=== PATIENT | male | born 1960 | race Caucasian/White ===

== ENCOUNTER 2017-05-19 07:02 | Outpatient (CLI) | payer BC ==
[~2017-05-19] VITALS: Ht 175.3 cm; Wt 99.1 kg
--- NOTE | ~2017-05-19 | HEMODYNAMI ---
PATIENT:ANAHI KAPLAN MEDICAL RECORD: [id number] : 64 LOCATION:[facility] ADMISSION DATE: 05/19/17 Generatedon:05/19/20179:50 Patient name: ANAHI KAPLAN Patient #: [id number] SSN: : Date of study: 05/19/2017 Page: Of Hemodynamic Procedure Report Patient Data Patient Demographics Procedure consent was obtained First Name: ANAHI Gender: Male Last Name: ROSAURA : 1960 Middle Initial: JUAN MANUEL Age: 56 year(s) Patient #: [id number] Race: Unknown Additional ID: [id number] Contact details Address: [address] [place] [address] State: [place] City: [facility] Zip code: [address] Past Medical History Allergies: No known allergies Admission Admission Data Admission Date: 05/19/2017 Admission Time: 7:02 Height (in.): 5.9 BSA: 0.36 (m2) Height (cm.): 14.99 BMI: 4483.81 (kg/m2) Weight (lbs.): 222 Weight (kg.): 100.7 Lab Results Lab Result Date: 05/19/2017 Lab Result Time: 0:00 Biochemistry Name Units Result Min Max BUN mg/dl 15 --(--*-)-- 7 18 Creatinine mg/dl 0.7 --(*---)-- 0.6 1.3 CBC Name Units Result Min Max Hemoglobin g/dl 13.3 -*(----)-- 13.5 17.5 Procedure Procedure Types Cath Procedure Diagnostic Procedure [facility] w/Coronaries PCI Procedure Coronary Stent Coronary Stent Initial Miscellaneous Procedures Moderate Sedation up to 30 minutes Procedure Description Procedure Date Procedure Date: 05/19/2017 Procedure Start Time: 9:25 Procedure End Time: 9:50 Procedure Staff Name Function Christian Rodas MD Performing Physician Ulises Lake RT Scrub Elijah Gonzalez RN Nurse Parth Arenas RN Business Process Architect Bhakti Tello RT Monitor Procedure Data Cath Procedure Fluoroscopy Diagnostic fluoroscopy Total fluoroscopy Time: 3.9 time: 3.9 min min Diagnostic fluoroscopy Total fluoroscopy dose: 765 dose: 765 mGy mGy Contrast Material Contrast Material Type Amount (ml) Isovue 300 126 Entry Location Entry Primary Successful Side Size Upsize Upsize Entry Closure Anders ccessful Closure Location (Fr) 1 (Fr) 2 (Fr) Remarks Device Remarks Radial Right 6 Fr Mechanical artery Short Compression Estimated blood loss: 10 ml Diagnostic catheters Device Type Used For End Catheter Placement DIAGNOSTIC Jame 110cm Procedure 5Fr catheter ([id number]) Procedure Complications No complications Procedure Medications Medication Administration Route Dosage 0.9% NaCl I.V. 100 ml/hr Oxygen NC 2 l/min Heparin Flush Bag added to field 2 bags (1000units/500ml NS) Lidocaine 2% added to field 20 Radial Cocktail added to field 1 syringe (Verapomil 2mg/Nitro 400mcg/Heparin 1500units) Versed I.V. 2 mg Fentanyl I.V. 100 mcg Versed I.V. 1 mg Radial Cocktail I.A. 1 syringe (Verapomil 2mg/Nitro 400mcg/Heparin 1500units) Heparin Bolus I.V. 9900 units Nitroglycerin IC/IA I.C. 100 mcg Brilinta P.O. 180 mg Hemodynamics Rest BSA: 0.36 (m2) HGB: 13.3 (g/dl) O2 Consumption: Estimated: 42.74 (ml/min) O2 Con sumption indexed: Estimated:118.72 (ml/min/m) Heart Rate: 70 (bpm) Pressure Samples Time Site Value (mmHg) Purpose Heart Use Rate(bpm) 9:28 LV 132/8,11 Snapshot 101 9:29 AO 99/64(82) Pullback 88 9:29 LV 114/-7,7 Pullback 88 Gradients Valve Time Site 1 Site 2 Mean SEP/DFP Peak To Heart Use (mmHg) (sec/min) Peak Rate (mmHg) (bpm) Aortic 9:29 LV AO 12 7 15 88 114/-7,7 99/64(82) Calculations Valve P-P Mean Valve Index Valve Source Name Gradient Area Flow (cm2) Aortic 15 12 15 12 Snapshots Pre Cath Intra NCS Post Cath Vital Signs Time Heart Resp SPO2 etCO2 NIBP (mmHg) Rhythm Pain Sedation Rate (ipm) (%) (mmHg) Status Level (bpm) 9:01:52 78 14 98 0 136/92(116) NSR 0 (11) 10(A) , No pain 9:14:56 82 24 99 33.7 139/92(107) NSR 0 (11) 10(A) , No pain 9:19:33 69 17 96 34.4 135/84(107) NSR 0 (11) 10(A) , No pain 9:24:11 69 13 95 41.1 119/75(93) NSR 0 (11) 10(A) , No pain 9:28:47 158 15 93 32.2 111/66(96) NSR 0 (11) 9(A) , No pain 9:33:22 82 14 92 35.2 122/60(96) NSR 0 (11) 9(A) , No pain 9:37:58 85 14 94 34.4 111/65(97) NSR 0 (11) 10(A) , No pain 9:42:35 93 15 93 35.9 110/50(81) NSR 0 (11) 10(A) , No pain 9:47:07 84 17 97 38.1 125/70(89) NSR 0 (11) 10(A) , No pain Medications Time Medication Route Dose Verified Delivered Reason Notes Effectiveness by by 9:16:45 0.9% NaCl I.V. 100 Elijah Elijah Per physician ml/hr Carlos Gonzalez RN, RN 9:16:57 Oxygen NC 2 l/min Elijah Elijah Per physician Carlos Gonzalez RN, RN 9:17:10 Heparin Flush added 2 bags Elijah Elijah used for Bag to Lorigan Loralyssa procedure (1000units/500ml field DANIEL SANCHEZ NS) 9:17:23 Lidocaine 2% added 20ml Elijah Elijah for local to vial Lorigan Lorigan anesthetic field DANIEL SANCHEZ 9:17:33 Radial Cocktail added 1 Elijah Elijah used for (Verapomil to syringe Lorigan Lorigan procedure 2mg/Nitro field DANIEL SANCHEZ 400mcg/Heparin 1500units) 9:18:56 Versed I.V. 2 mg Elijah Elijah for sedation Carlos Gonzalez RN, RN 9:19:05 Fentanyl I.V. 100 mcg Elijah Elijah for sedation Lorigan Lorigan RN RN 9:27:00 Versed I.V. 1 mg Elijah Elijah for sedation Carlos Gonzalez RN RN 9:27:13 Radial Cocktail I.A. 1 Elijah Christian for (Verapomil syringe Carlos Rodas MD vasodilation 2mg/Nitro RN 400mcg/Heparin 1500units) 9:35:52 Heparin Bolus I.V. 9,900 Elijah Elijah for units Carlos Gonzalez anticoagulation RN RN 9:41:12 Nitroglycerin I.C. 100 mcg Elijah Christian for IC/IA Carlos Rodas MD vasodilation RN 9:44:07 Brilinta P.O. 180 mg Elijah Christian for Carlos Rodas MD antiplatelet RN therapy Procedure Log Time Note 8:46:32 Elijah Gonzalez RN sent for patient. Start room use. 8:46:32 Time tracking: Regular hours 8:46:37 Plan of Care:Hemodynamics will remain stable., Cardiac rhythm will remain stable., Comfort level will be maintained., Respiratory function will remain adequate., Patient/ family verbilizes understanding of procedure., Procedure tolerated without complication., Recovers from procedure without complications.. 8:53:57 Patient received from Pre/Post Procedure Room to CCL 1 Alert and oriented. Tansferred to table in Supine position. 8:53:59 Warm blankets applied, and kacy hugger turned on for patient comfort. 8:54:00 Correct patient and procedure confirmed by team. 8:54:02 Signed procedure consent form obtained from patient. 8:54:02 ECG and BP/O2 sat monitors applied to patient. 8:54:03 Full Disclosure recording started 9:01:03 Vital chart was started 9:05:24 Baseline sample Acquired. 9:05:28 Rhythm: sinus rhythm 9:05:59 H&P Date Dictated: 04/19/2017 Within 30 days and on chart.. 9:06:01 Pre-procedure instructions explained to patient. 9:06:01 Pre-op teaching completed and patient verbalized understanding. 9:06:03 Family in patients room. 9:06:06 Patient NPO since Midnight. 9:06:16 Patient allergic to No known allergies 9:06:18 Is the patient allergic to Iodine/contrast media? No. 9:06:20 Is patient on blood thinner?No 9:06:22 Patient diabetic? Yes. 9:06:23 If diabetic: On Metformin? Yes 9:06:28 If on Metformin: Last Dose? 05/17/2017 9:06:31 Previous problem with sedation/anesthesia? No ? 9:06:32 Snore? Yes 9:06:33 Sleep apnea? No 9:06:35 Deviated septum? No 9:06:35 Opens mouth fully? Yes 9:06:41 Sticks out tongue? Yes 9:06:44 Airway obstruction? No ? 9:06:45 Dentures? No ? 9:06:50 Pre procedure: right dorsailis pedis pulse 2+ Normal; easily identifiable; not easily obliterated 9:06:52 Modified Tello's test Ulnar < 7 seconds 9:06:53 Patient pain scale 0/10 ?. 9:07:00 IV patent on arrival in Left upper arm with 0.9% NaCl at KVO. 9:07:03 Lab results completed and on chart. 9:07:06 Right Radial & Right Groin area was prepped with chlora-prep and draped in sterile fashion 9:07:08 Alarms reviewed by R. N. 9:07:09 Sharps counted by scrub and verified by R.N. 9:07:12 Use device set Radial Dx or PCI 9:07:13 ACIST Syringe (66582) opened to sterile field. 9:07:13 Medline Cath Pack ([id number]) opened to sterile field. 9:07:14 Bag Decanter (2002S) opened to sterile field. 9:07:14 SHEATH 6FR Slender ([id number]) opened to sterile field. 9:07:15 DIAGNOSTIC WIRE .035 260cm J wire (371239) opened to sterile field. 9:07:16 ACIST Hand Control (22124) opened to sterile field. 9:07:16 ACIST Manifold (48791) opened to sterile field. 9:07:17 Tegaderm 4 x 4 (1626W) opened to sterile field. 9:07:17 MBrace Wrist Support ([id number]) opened to sterile field. 9:07:18 NEEDLE Cook 21G 4cm Radial ([id number]) opened to sterile field. 9:07:58 Vital chart was stopped 9:08:19 IV Left upper arm D/C'd due to infiltration. 9:12:47 Patient Height : 5.9 inches 9:12:51 Patient Weight : 222 lbs 9:14:07 IV started by Parth Arenas RN inleft hand with a 22 gauge IV catheter with 0.9% NaCl at KVO. 9:14:34 Vital chart was started 9:14:42 --------ALL STOP TIME OUT------ 9:14:43 Final Timeout: patient, procedure, and site verified with staff and physician. All members of the team are in agreement. 9:14:45 Right Radial & Right Groin site verified by team. 9:14:48 Physical assessment completed. ASA score P 2 - A patient with mild systemic disease as per Christian Rodas MD. 9:14:54 Sedation plan: IV Moderate Sedation Medication:Versed, Fentanyl 9:15:58 IV CATHETER 22g opened to sterile field. 9:16:30 Lab Result : Creatinine 0.7 mg/dl 9:16:30 Lab Result : BUN 15 mg/dl 9:16:30 Lab Result : Hemoglobin 13.3 g/dl 9:16:34 Lab results completed and on chart. 9:16:45 0.9% NaCl 100 ml/hr I.V. was administered by Elijah Gonzalez RN; Per physician; 9:16:57 Oxygen 2 l/min NC was administered by Elijah Gonzalez RN; Per physician; 9:17:10 Heparin Flush Bag (1000units/500ml NS) 2 bags added to field was administered by Elijah Gonzalez RN; used for procedure; 9:17:23 Lidocaine 2% 20ml vial added to field was administered by Elijah Gonzalez RN; for local anesthetic; 9:17:33 Radial Cocktail (Verapomil 2mg/Nitro 400mcg/Heparin 1500units) 1 syringe added to field was administered by Elijah Gonzalez RN; used for procedure; 9:18:56 Versed 2 mg I.V. was administered by Elijah Gonazlez RN; for sedation; 9:19:05 Fentanyl 100 mcg I.V. was administered by Elijah Gonzalez RN; for sedation; 9:24:52 Zero performed for pressure channel P1 9:25:05 Procedure started. 9:25:22 Local anesthetic to right radial artery with Lidocaine 2% by Christian Rodas MD.INITIAL ACCESS ONLY 9:26:21 A 6 Fr Short sheath was inserted into the Right Radial artery 9:27:00 Versed 1 mg I.V. was administered by Elijah Gonzalez RN; for sedation; 9:27:13 Radial Cocktail (Verapomil 2mg/Nitro 400mcg/Heparin 1500units) 1 syringe I.A. was administered by Christian Rodas MD; for vasodilation; 9:27:39 A DIAGNOSTIC Jame 110cm 5Fr catheter ([id number]) was advanced over the wire and used for Procedure. 9::24 LV gram done using FELDMAN 9:: Injector settings: Ml/sec: 7, Volume: 15, 9:: LV hemodynamics recorded. 9::28 EF : 60 % 9:29:54 RCA angiography performed. 9:31:18 LCA angiography performed. 9:31:38 Catheter removed. 9:32:45 Merit INFLATION SYRINGE opened to sterile field. 9:32:46 TUBING High Pressure Extension Tubing (Clark) ([id number]) opened to sterile field. 9:33:24 GUIDE 6FR AR 1.0 catheter ([id number]) opened to sterile field. 9:33:30 BMW 300cm [place] 2 J wire ([id number]) opened to sterile field. 9:34:06 6 Fr AR 1 guide catheter was inserted over the wire 9:34:10 BMW wire advanced. 9:35:52 Heparin Bolus 9,900 units I.V. was administered by Elijah Gonzalez RN; for anticoagulation; 9:36:15 Wire advanced across lesion. 9:39:01 Inflation Number: 1 A PAULINA OTW 4.0 x 30 stent ([id number]) was prepped and advanced across the Mid RCA. The stent was deployed at 14 HERMILA for 0:10 (min:sec). 9:41:12 Nitroglycerin IC/IA 100 mcg I.C. was administered by Christian Rodas MD; for vasodilation; 9:42:48 Stent catheter was removed intact over wire. 9:42:49 Wire removed. 9:42:49 Guide catheter removed. 9:42:55 TR BAND Large ([id number]) opened to sterile field. 9:43:50 Sheath removed intact; hemostasis achieved with Mechanical Compression to the Right Radial artery. 9:44:07 Brilinta 180 mg P.O. was administered by Christian Rodas MD; for antiplatelet therapy; 9:44:12 Procedure ended.(Physican Out) 9:44:36 Fluoroscopy time 03.90 minutes. 9:44:43 Fluoroscopy dose: 765 mGy 9:44:43 Flurop Dose total: 765 9:44:48 Contrast amount:Isovue 300 126ml. 9:44:51 TR band inflated with 10cc of air. 9:44:59 Post procedure: right dorsailis pedis pulse 2+ Normal; easily identifiable; not easily obliterated. 9:45:02 Post-procedure physical assessment completed. ASA score P 2 - A patient with mild systemic disease as per Christian Rodas MD. 9:45:05 Post procedure rhythm: unchanged. 9:45:07 Estimated blood loss: 10 ml 9:45:09 Post procedure instruction explained to patient.Patient verbalizes understanding. 9:45:09 Patient needs reinforcement of post procedure teaching. 9:46:19 Procedure type changed to Cath procedure, Diagnostic procedure, LHC, LHC w/Coronaries, PCI procedure, Coronary Stent, Coronary Stent Initial, Miscellaneous Procedures, Moderate Sedation up to 30 minutes 9:46:57 Procedure and supply charges have been captured, reviewed, submitted and are correct. 9:47:00 Procedure Complication : No complications 9:50:17 See physician's report for complete and final results. 9:50:19 Report given to Pre/Post Procedure Room. 9:50:21 Patient transfered to Pre/Post Procedure Room with Bed. 9:50:23 Procedure ended. 9:50:23 Full Disclosure recording stopped 9:50:28 End room use (Document Last) 9:50:52 Vital chart was stopped Intervention Summary Intervention Notes Time ActionType Lesion and Equipment Action# Pressure Duration Attributes Used 9:39:01 Place stent Mid RCA PAULINA OTW 4.0 1 14 00:10 x 30 stent ([id number]) Device Usage Item Name Manufacture Quantity Catalog Hospital Part Current Mini mal Lot# / Number Charge Number Stock Stock Serial# Code ACIST Syringe Acist 1 92691 950304 605932 [id number] 20 (48311) Domino Inc Medline Cath Cardinal 1 [id number] 246908 34567 573255 5 Pack Health ([id number]) Bag Decanter Microtek 1 675308 22697 031588 5 (2002S) Medical Inc. SHEATH 6FR Terumo 1 [id number] 423197 849619 012032 40 Slender ([id number]) DIAGNOSTIC St Dominik 1 223633 302829 063768 511049 30 WIRE .035 260cm J wire (607993) ACIST Hand Acist 1 06729 428304 470826 411307 5 Control Medical (26937) Systems Inc ACIST Acist 1 02201 890845 655114 761346 5 Manifold Medical (91189) Systems Inc Tegaderm 4 x 3M 1 1626W 726500 428447 624355 5 4 (1626W) MBrace Wrist Advanced 1 140-0250-00 796708 76502 705062 5 Support Vascular ([id number]) Dynamics NEEDLE Safend 1 I47611 023036 797267 695098 5 21G 4cm Radial (H53519) IV CATHETER B. Bradley 1 5929291-55 829329 460286 140119 5 22g DIAGNOSTIC Terumo 1 40-5023 204878 836429 564248 5 Jame 110cm 5Fr catheter (389132) Merit Medtronic 1 A08A 649024 87078 655917 5 INFLATION SYRINGE TUBING High Merit 1 [id number] 392828 50526 079354 10 Pressure Medical Extension Tubing (Rodas) ([id number]) GUIDE 6FR AR Medtronic 1 [id number] 151913 30061 004773 1 1.0 catheter ([id number]) BMW 300cm Rose 1 [id number] 009631 325135 656084 5 [place] 2 J Vascular wire ([id number]) PAULINA OTW 4.0 Medtronic 1 [id number] 299619 8598964 935638 5 [id number] x 30 stent ([id number]) TR BAND Large Terumo 1 [id number] 758332 845983 116161 40 ([id number]) Signature Audit [place] Stage Time Signature Unsigned Intra-Procedure 05/19/2017 Bhakti Tello 9:50:49 AM RT(R) Signatures Monitor : Bhakti Tello Signature : RT Date : Time : [place] [address] [place] [address]
[~2017-05-19 07:02] MED LIST: BAYER CHEWABLE81 MG PO; GLUCOPHAGE1000 MG PO; PERCOCET 10/3251 TA1 PO; PLAVIX75 MG PO; TOPROL XL50 MG PO; VALIUM10 MG PO
[2017-05-19] MEDS ORDERED: LISINOPRIL10 MG PO (07:35)
[2017-05-19] MEDS ORDERED: COREG 3.1253.125 MG PO (07:35)
[2017-05-19] MEDS ORDERED: AMOXICILLIN875 MG PO (07:37)
[2017-05-19] MEDS ORDERED: TINAZIDINE PO (07:37)
[2017-05-19 07:39] VITALS: BP 119/75; Ht 175.3 cm; Wt 99.1 kg
[2017-05-19 08:09] LABS: BASOPHILS 0.2 % (0-2); EOSINOPHILS 0.6 % (0-7); HEMATOCRIT 38.5 % (42.0-54.0); HEMOGLOBIN 13.3 g/dL (13.5-17.5); IMMATURE GRANULOCYTES 0.5 % (0-5); LYMPHOCYTES 23.3 % (15-50); MCH 31.1 pg (26.0-34.0); MCHC 34.5 g/dL (31.0-37.0); MCV 90.2 fL (80.0-100.0); MEAN PLATELET VOLUME 9.6 fL (7.4-10.4); MONOCYTES 9.5 % (2-11); NEUTROPHILS 65.9 % (40-80); PLATELET COUNT 195 10x3/uL (130-400); RBC 4.27 10x6/uL (4.20-6.10); WBC 9.7 10x3/uL (4.8-10.8)
[2017-05-19 08:29] LABS: CALC OSMOLALITY 276 mosm/kg (275-300); CALCIUM 8.3 mg/dL (8.5-10.1); CARBON DIOXIDE 25.2 mmol/L (21.0-32.0); CHLORIDE - SERUM 102 mmol/L (98-107); CREATININE - SERUM 0.7 mg/dL (0.6-1.3); GLUCOSE 138 mg/dL (74-106); POTASSIUM - SERUM 4.1 mmol/L (3.5-5.1); SODIUM 137 mmol/L (136-145); UREA NITROGEN 15 mg/dL (7-18); eGFR NON AFRICAN AMERICAN > 90 mL/min (90-120)
== END 2017-05-19 14:00 | disposition home or self-care (01) ==
LOC: D.CATH 07:02
PROVIDERS: Internal Medicine Cardiovascular Disease
DX: I25.119 Atherosclerotic heart disease of native coronary artery with unspecified angina pectoris (principal); T82.855A Stenosis of coronary artery stent, initial encounter; Z01.812 Encounter for preprocedural laboratory examination
CPT/HCPCS: 93458; C9600

== ENCOUNTER 2018-03-06 00:27 | Observation (INO) | payer BC ==
[~2018-03-06] VITALS: Ht 175.3 cm; Wt 101.5 kg
--- NOTE | ~2018-03-06 | HEMODYNAMI ---
PATIENT:ANAHI KAPLAN MEDICAL RECORD: [id number] : 64 LOCATION:[facility] D.[address] [facility]# [id number] ADMISSION DATE: 03/06/18 Generatedon:03/06/201816:25 Patient name: ANAHI KAPLAN Patient #: [id number] SSN: : Date of study: 03/06/2018 Page: Of Hemodynamic Procedure Report Patient Data Patient Demographics Procedure consent was obtained First Name: ANAHI Gender: Male Last Name: ROSAURA : 1960 [facility] Initial: JUAN MANUEL Age: 57 year(s) Patient #: [id number] Race: Unknown Additional ID: [id number] Contact details Address: [address] [place] [address] State: [place] City: [facility] Zip code: [address] Past Medical History Allergies: No known allergies Admission Admission Data Admission Date: 03/06/2018 Admission Time: 2:02 Room #: D.2132 Lab Results Lab Result Date: 03/06/2018 Lab Result Time: 5:50 Biochemistry Name Units Result Min Max BUN mg/dl 12 --(-*--)-- 7 18 Creatinine mg/dl 0.8 --(-*--)-- 0.6 1.3 CBC Name Units Result Min Max Hematocrit % 38.9 *-(----)-- 42 54 Hemoglobin g/dl 13.3 -*(----)-- 13.5 17.5 Procedure Procedure Types Cath Procedure Diagnostic Procedure LHC [facility] w/Coronaries Sedation Charges Moderate Sedation up to 15 minutes Procedure Description Procedure Date Procedure Date: 03/06/2018 Procedure Start Time: 16:13 Procedure End Time: 16:24 Procedure Staff Name Function Christian Rodas MD Performing Physician See Bell RT Monitor Bhakti Tello RT Scrub Oly Erickson RN Nurse Procedure Data Cath Procedure Fluoroscopy Diagnostic fluoroscopy Total fluoroscopy Time: 3.2 time: 3.2 min min Diagnostic fluoroscopy Total fluoroscopy dose: 597 dose: 597 mGy mGy Contrast Material Contrast Material Type Amount (ml) Isovue 300 42 Entry Location Entry Primary Successful Side Size Upsize Upsize Entry Closure Anders ccessful Closure Location (Fr) 1 (Fr) 2 (Fr) Remarks Device Remarks Radial Right 6 Fr Mechanical artery Short Compression Estimated blood loss: 5 ml Diagnostic catheters Device Type Used For End Catheter Placement DIAGNOSTIC Jame 110cm Procedure 5Fr catheter ([id number]) Procedure Complications No complications Procedure Medications Medication Administration Route Dosage 0.9% NaCl I.V. 100 ml/hr Oxygen etCO2 Nasal cannula 2 l/min Lidocaine 2% added to field 20 Heparin Flush Bag added to field 2 bags (1000units/500ml NS) Radial Cocktail added to field 1 syringe (Verapomil 2mg/Nitro 400mcg/Heparin 1500units) Versed I.V. 2 mg Fentanyl I.V. 50 mcg Versed I.V. 2 mg Fentanyl I.V. 50 mcg Hemodynamics Rest HGB: 13.3 (g/dl) Heart Rate: 93 (bpm) Pressure Samples Time Site Value (mmHg) Purpose Heart Use Rate(bpm) 16:16 LV 121/-13,5 Snapshot 75 16:16 LV 122/-6,16 Snapshot 87 16:17 AO 85/45(59) Pullback 86 16:17 LV 116/-12,10 Pullback 86 Gradients Valve Time Site 1 Site 2 Mean SEP/DFP Peak To Heart Use (mmHg) (sec/min) Peak Rate (mmHg) (bpm) Aortic 16:17 LV AO 14 20 31 86 116/-12,10 85/45(59) Calculations Valve P-P Mean Valve Index Valve Source Name Gradient Area Flow (cm2) Aortic 31 14 31 14 Snapshots Pre Cath Intra NCS Post Cath Vital Signs Time Heart Resp SPO2 NIBP Rhythm Pain Sedation Rate (ipm) (%) (mmHg) Status Level (bpm) 16:01:40 77 11 100 117/71(86) NSR 0 (11) 10(A) , No pain 16:05:54 77 10 100 117/84(97) NSR 0 (11) 10(A) , No pain 16:10:06 80 16 98 112/72(90) NSR 0 (11) 10(A) , No pain 16:14:17 78 14 96 111/73(95) NSR 0 (11) 10(A) , No pain 16:18:34 89 13 98 101/60(74) NSR 0 (11) 10(A) , No pain 16:22:46 89 13 96 104/65(83) NSR 0 (11) 10(A) , No pain Medications Time Medication Route Dose Verified Delivered Reason Notes E ffectiveness by by 15:41:49 0.9% NaCl I.V. 100 Christian Oly used for ml/hr Clark Erickson shoe stitcher 15:41:56 Oxygen etCO2 2 l/min Christian Oly used for Nasal Clark Erickson procedure cannula RN 15:42:02 Lidocaine 2% added 20ml Christian Christian for local to vial Clark Rodas MD anesthetic field 15:42:06 Heparin Flush added 2 bags Christian Christian used for Bag to Clark Rodas MD procedure (1000units/500ml field NS) 16:01:55 Radial Cocktail added 1 Christian Christian for local (Verapomil to syringe Clark Rodas MD anesthetic 2mg/Nitro field 400mcg/Heparin 1500units) 16:10:53 Versed I.V. 2 mg Christian Oly for Clark Erickson sedation RN 16:11:02 Fentanyl I.V. 50 mcg Christian Oly for Clark Erickson sedation RN 16:19:43 Versed I.V. 2 mg Christian Oly for Clark Erickson sedation RN 16:19:47 Fentanyl I.V. 50 mcg Christian Oly for Clark Erickson sedation veneer marker Log Time Note 15:37:54 Signed procedure consent form obtained from patient. 15:37:55 Diagnostic Cath status Elective 15:38:40 Time tracking: Regular hours (M-F 7:00 - 5:00) 15:38:44 Plan of Care:Hemodynamics will remain stable., Cardiac rhythm will remain stable., Comfort level will be maintained., Respiratory function will remain adequate., Patient/ family verbilizes understanding of procedure., Procedure tolerated without complication., Recovers from procedure without complications.. 15:38:46 Bhakti Tello RT(R) sent for patient. Start room use. 15:41:49 0.9% NaCl 100 ml/hr I.V. was administered by Oly Erickson RN; used for procedure; 15:41:56 Oxygen 2 l/min etCO2 Nasal cannula was administered by Oly Erickson RN; used for procedure; 15:42:02 Lidocaine 2% 20ml vial added to field was administered by Christian Rodas MD; for local anesthetic; 15:42:06 Heparin Flush Bag (1000units/500ml NS) 2 bags added to field was administered by Christian Rodas MD; used for procedure; 16:00:04 Vital chart was started 16:01:24 Patient received from Med II to CCL 1 Alert and oriented. Tansferred to table in Supine position. 16:01:25 Warm blankets applied, and kacy hugger turned on for patient comfort. 16:01:26 Correct patient and procedure confirmed by team. 16:01:26 ECG and BP/O2 sat monitors applied to patient. 16:01:27 Baseline sample Acquired. 16:01:38 Rhythm: sinus rhythm 16:01:40 Full Disclosure recording started 16:01:50 Baseline sample Acquired. 16:01:55 Radial Cocktail (Verapomil 2mg/Nitro 400mcg/Heparin 1500units) 1 syringe added to field was administered by Christian Rodas MD; for local anesthetic; 16:02:11 etCO2 monitor malfunction, [place] etCO2 at this time 16:02:13 H&P Date Dictated: 03/06/2018 Within 30 days and on chart.. 16:02:20 Pre-procedure instructions explained to patient. 16:02:20 Pre-op teaching completed and patient verbalized understanding. 16:02:22 Family in patients room. 16:02:23 Patient NPO since Midnight. 16:02:27 Patient allergic to No known allergies 16:02:29 Is the patient allergic to Iodine/contrast media? No. 16:02:30 Is patient on blood thinner?No 16:02:31 Patient diabetic? Yes. 16:02:32 If diabetic: On Metformin? Yes 16:02:35 If on Metformin: Last Dose? 03/05/2018 16:02:53 Previous problem with sedation/anesthesia? No ? 16:02:55 Snore? Yes 16:02:56 Sleep apnea? No 16:02:57 Deviated septum? No 16:02:58 Opens mouth fully? Yes 16:02:58 Sticks out tongue? Yes 16:03:01 Airway obstruction? No ? 16:03:04 Dentures? No ? 16:03:07 Modified Tello's test Ulnar < 7 seconds 16:03:09 Patient pain scale 0/10 ?. 16:03:13 IV patent on arrival in right antecubital with 0.9% NaCl at [facility]. 16:03:56 Lab Result : Creatinine 0.8 mg/dl 16:03:56 Lab Result : BUN 12 mg/dl 16:03:56 Lab Result : Hemoglobin 13.3 g/dl 16:03:56 Lab Result : Hematocrit 38.9 % 16:03:58 Lab results completed and on chart. 16:04:02 Right Radial & Right Groin area was prepped with chlora-prep and draped in sterile fashion 16:04:03 Alarms reviewed by R. N. 16:04:04 Sharps counted by scrub and verified by R.N. 16:04:06 Use device set Radial Dx or PCI 16:04:07 ACIST Syringe (16775) opened to sterile field. 16:04:08 Medline Cath Pack ([id number]) opened to sterile field. 16:04:08 Bag Decanter (2002S) opened to sterile field. 16:04:09 ACIST Hand Control (38090) opened to sterile field. 16:04:10 ACIST Manifold (84227) opened to sterile field. 16:04:10 Tegaderm 4 x 4 (1626W) opened to sterile field. 16:04:11 MBrace Wrist Support ([id number]) opened to sterile field. 16:04:12 SHEATH 6FR Slender ([id number]) opened to sterile field. 16:04:13 NEEDLE Cook 21G 4cm Radial (G52127) opened to sterile field. 16:04:13 DIAGNOSTIC WIRE .035 260cm J wire (071125) opened to sterile field. 16:04:23 Physician arrived 16:04:24 --------ALL STOP TIME OUT------ 16:04:24 Final Timeout: patient, procedure, and site verified with staff and physician. All members of the team are in agreement. 16:04:26 Right Radial & Right Groin site verified by team. 16:04:45 Physical assessment completed. ASA score P 2 - A patient with mild systemic disease as per Christian Rodas MD. 16:10:05 Zero performed for pressure channel P1 16:10:53 Versed 2 mg I.V. was administered by Oly Erickson RN; for sedation; 16:11:02 Fentanyl 50 mcg I.V. was administered by Oly Erickson RN; for sedation; 16:13:00 Procedure started. 16:13:04 Local anesthetic to right radial artery with Lidocaine 2% by Christian Rodas MD.INITIAL ACCESS ONLY 16:13:21 A 6 Fr Short sheath was inserted into the Right Radial artery 16:13:31 A DIAGNOSTIC Jame 110cm 5Fr catheter ([id number]) was advanced over the wire and used for Procedure. 16:17:03 LV gram done using FELDMAN 16:17:06 Injector settings: Ml/sec: 7, Volume: 15, 16:17:07 LV hemodynamics recorded. 16:17:13 EF : 55 % 16:17:57 LCA angiography performed. 16:19:43 Versed 2 mg I.V. was administered by Oly Erickson RN; for sedation; 16:19:47 Fentanyl 50 mcg I.V. was administered by Oly Erickson RN; for sedation; 16:20:02 RCA angiography performed. 16:21:41 Catheter removed. 16:22:12 TR BAND Standard ([id number]) opened to sterile field. 16:22:19 Sheath removed intact; hemostasis achieved with Mechanical Compression to the Right Radial artery. 16:23:32 Procedure ended.(Physican Out) 16:23:41 Fluoroscopy time 03.20 minutes. 16:23:46 Flurop Dose total: 597 16:23:46 Fluoroscopy dose: 597 mGy 16:23:49 Contrast amount:Isovue 300 42ml. 16:23:50 Sharps counted by scrub and verified by R.N. 16:23:51 Insertion/operative site no bleeding no hematoma. 16:23:54 TR band inflated with 10cc of air. 16:24:00 Post right radial artery:stable, soft, clean and dry 16:24:09 Post Procedure Pulses reassessed and unchanged 16:24:12 Post-procedure physical assessment completed. ASA score P 2 - A patient with mild systemic disease as per Christian Rodas MD. 16:24:14 Post procedure rhythm: unchanged. 16:24:17 Estimated blood loss: 5 ml 16:24:18 Post procedure instruction explained to patient.Patient verbalizes understanding. 16:24:22 Patient needs reinforcement of post procedure teaching. 16:24:30 Procedure type changed to Cath procedure, Diagnostic procedure, LHC, LHC w/Coronaries, Sedation Charges, Moderate Sedation up to 15 minutes 16:24:39 Procedure and supply charges have been captured, reviewed, submitted and are correct. 16:24:41 Procedure Complication : No complications 16:24:43 Vital chart was stopped 16:24:44 See physician's report for complete and final results. 16:24:46 Report given to PCU. 16:24:49 Patient transfered to PCU with Stretcher. 16:24:53 Procedure ended. 16:24:53 Full Disclosure recording stopped 16:24:57 End room use (Document Last) Device Usage Item Name Manufacture Quantity Catalog Hospital Part Current Minima l Lot# / Number Charge Number Stock Stock Serial# Code ACIST Acist 1 94340 536256 765570 830827 20 Syringe Medical (29846) Systems Inc Medline Cath Medline 1 [id number] 059087 93933 695388 5 Pack ([id number]) Bag Decanter Microtek 1 2002S 466322 19625 426482 5 (2001S) Medical Inc. ACIST Hand Acist 1 84548 000632 549841 108300 5 Control Medical (26776) Systems Inc ACIST Acist 1 26288 334090 774815 970802 5 Manifold Medical (34489) Systems Inc Tegaderm 4 x 3M 1 1626W 188777 664174 999331 5 4 (1626W) MBrace Wrist Advanced 1 140-0250-00 320977 58044 489026 5 Support Vascular ([id number]) Dynamics SHEATH 6FR Terumo 1 [id number] 815378 928413 195872 40 Slender ([id number]) NEEDLE Cook Cook Medical 1 D12186 655646 538723 834547 5 21G 4cm Radial (K25235) DIAGNOSTIC St Dominik 1 282971 147387 334469 493447 30 WIRE .035 260cm J wire (631899) DIAGNOSTIC Terumo 1 40-2812 916459 711072 316372 5 Jame 110cm 5Fr catheter (056225) TR BAND Terumo 1 [id number] 422138 452142 996163 40 Standard ([id number]) Signature Audit Fouke Stage Time Signature Unsigned Intra-Procedure 03/06/2018 See Bell 4:25:31 PM RT(R) Signatures Monitor : See Bell RT Signature : Date : Time : [address] [place] [address]
--- NOTE | ~2018-03-06 | MORECARE ---
CASE MANAGEMENT DISCHARGE SUMMARY PATIENT: ANAHI KAPLAN UNIT: [id number] ADM DATE: 03/06/18 AGE: 57 : 64 SEX: M ROOM/BED: D.2132 AUTHOR: MARY KATE MYERS PHYSICIAN: REFERRING PHYSICIAN: AALIYAH MUKHERJEE MD DATE OF SERVICE: 03/07/18 Discharge Plan Patient Name: ANAHI KAPLAN [facility] [facility] 1960 Planned Disposition: Home Anticipated Discharge Date: 03/06/18 Discharge Date: 03/06/2018 Expected LOS: 1 Initial Reviewer: [email or web address] Initial Review Date: 03/07/2018 Generated: 03/07/18 12:16 pm Patient Name: ANAHI KAPLAN Page [phone] at 1117 All edits/amendments must be made on the electronic document DICTATION DATE: 03/07/18 1116 TECHNICAL SALES REPRESENTATIVES: DINESH 03/07/18 1116 RPT#: [id number] DC DATE:03/06/18 STATUS: DIS IN [facility] [address] [place] [address] END OF REPORT
[~2018-03-06 00:27] MED LIST changes: +AMOXICILLIN875 MG PO; +COREG 3.1253.125 MG PO; +LISINOPRIL10 MG PO; +TINAZIDINE PO
[2018-03-06] MEDS ORDERED: BAYER CHEWABLE81 MG PO (00:32)
[2018-03-06] MEDS ORDERED: PRINIVIL20 MG PO (00:32)
[2018-03-06 01:02] LABS: BASOPHILS 0.3 % (0-2); EOSINOPHILS 3.1 % (0-7); HEMOGLOBIN 13.8 g/dL (13.5-17.5); IMMATURE GRANULOCYTES 0.4 % (0-5); MCH 30.5 pg (26.0-34.0); MCHC 33.7 g/dL (31.0-37.0); MCV 90.5 fL (80.0-100.0); MEAN PLATELET VOLUME 9.6 fL (7.4-10.4); NEUTROPHILS 53.2 % (40-80); PLATELET COUNT 226 10x3/uL (130-400); RBC 4.53 10x6/uL (4.20-6.10); RDW 12.8 % (11.5-14.5); WBC 10.1 10x3/uL (4.8-10.8)
[2018-03-06 01:05] LABS: INR 0.81 (0.85-1.17); PROTIME 10.9 SECONDS (11.6-15.0)
[2018-03-06 01:06] VITALS: BP 139/76
[2018-03-06 01:13] LABS: ALBUMIN 3.5 g/dL (3.4-5.0); ALKALINE PHOSPHATASE 59 U/L (46-116); ALT (SGPT) 26 U/L (10-68); BILIRUBIN - TOTAL 0.22 mg/dL (0.2-1.3); CALC OSMOLALITY 268 mosm/kg (275-300); CALCIUM 8.8 mg/dL (8.5-10.1); CARBON DIOXIDE 25.7 mmol/L (21.0-32.0); CHLORIDE - SERUM 95 mmol/L (98-107); CREATININE - SERUM 0.9 mg/dL (0.6-1.3); POTASSIUM - SERUM 3.9 mmol/L (3.5-5.1); SODIUM 130 mmol/L (136-145); UREA NITROGEN 14 mg/dL (7-18); eGFR NON AFRICAN AMERICAN > 90 mL/min (90-120)
[2018-03-06 01:15] LABS: GLUCOSE 230 mg/dL (74-106)
[2018-03-06 01:24] LABS: CKMB 0.7 U/L (0.0-3.6); CREATINE KINASE 91 UL (21-232); MAGNESIUM - SERUM 1.9 mg/dL (1.8-2.4)
[2018-03-06 01:26] LABS: TROPONIN-I < 0.017 ng/mL (0.000-0.060)
[2018-03-06 03:25] VITALS: BP 112/69; BMI 31.6
[2018-03-06 04:00] VITALS: BP 112/69
[2018-03-06 07:19] LABS: CREATINE KINASE 79 UL (21-232); TROPONIN-I < 0.017 ng/mL (0.000-0.060)
[2018-03-06 07:39] LABS: BASOPHILS 0.4 % (0-2); EOSINOPHILS 2.7 % (0-7); HEMATOCRIT 38.9 % (42.0-54.0); HEMOGLOBIN 13.3 g/dL (13.5-17.5); IMMATURE GRANULOCYTES 0.3 % (0-5); LYMPHOCYTES 29.9 % (15-50); MCH 30.9 pg (26.0-34.0); MCHC 34.2 g/dL (31.0-37.0); MCV 90.3 fL (80.0-100.0); MEAN PLATELET VOLUME 9.8 fL (7.4-10.4); MONOCYTES 10.2 % (2-11); NEUTROPHILS 56.5 % (40-80); PLATELET COUNT 222 10x3/uL (130-400); RBC 4.31 10x6/uL (4.20-6.10); RDW 12.9 % (11.5-14.5); WBC 7.7 10x3/uL (4.8-10.8)
[2018-03-06 07:44] LABS: CALC OSMOLALITY 270 mosm/kg (275-300); CALCIUM 8.8 mg/dL (8.5-10.1); CARBON DIOXIDE 22.3 mmol/L (21.0-32.0); CHLORIDE - SERUM 99 mmol/L (98-107); CREATININE - SERUM 0.8 mg/dL (0.6-1.3); SODIUM 134 mmol/L (136-145); UREA NITROGEN 12 mg/dL (7-18); eGFR NON AFRICAN AMERICAN > 90 mL/min (90-120)
[2018-03-06 07:45] LABS: GLUCOSE 159 mg/dL (74-106)
[2018-03-06 09:15] LABS: CHOL - HDL RATIO 4.9 ratio (2.3-4.9); LDL-HDL RATIO 3.2 ratio (1.5-3.5)
[2018-03-06 10:56] VITALS: BP 99/59
[2018-03-06 12:33] LABS: CKMB 0.5 U/L (0.0-3.6); CREATINE KINASE 78 UL (21-232); TROPONIN-I < 0.017 ng/mL (0.000-0.060)
[2018-03-06 13:28] VITALS: Ht 175.3 cm; Wt 101.5 kg
[2018-03-06 14:38] VITALS: BP 100/59
[2018-03-06] MEDS ORDERED: PROTONIX40 MG PO (17:17)
== END 2018-03-06 19:00 | disposition home or self-care (01) ==
LOC: D.ER 00:27 → D.M2 02:02 → OBSVTIME 02:02 → D.M2 02:02 → D.ER 02:17 → D.M2 19:00
PROVIDERS: Family Medicine; Internal Medicine Cardiovascular Disease
DX: I25.110 Atherosclerotic heart disease of native coronary artery with unstable angina pectoris (principal); Z95.5 Presence of coronary angioplasty implant and graft; I10 Essential (primary) hypertension; E11.9 Type 2 diabetes mellitus without complications; D64.9 Anemia, unspecified; Z87.891 Personal history of nicotine dependence

== ENCOUNTER → 2020-08-15 08:26 | Outpatient (CLI) | payer BC ==
[2018-03-06 13:28] VITALS: BMI 33.0
[~2020-08-15 08:26] MED LIST changes: +PRINIVIL20 MG PO; +PROTONIX40 MG PO
== END | disposition home or self-care (01) ==
LOC: D.HCCARDIO 08:26
PROVIDERS: ATTEND Internal Medicine Cardiovascular Disease
DX: R06.02 Shortness of breath (principal)